=== PATIENT | male | born 1970 | race Caucasian/White ===

== ENCOUNTER 2024-05-03 12:09 | Inpatient (IN) | payer OTHER ==
[2024-05-03 13:04] VITALS: BMI 38.2
[2024-05-03] MEDS ORDERED: guaiFENesin 600 MG TABLET.ER (FP) PO PRN (13:24)
[2024-05-03] MEDS ORDERED: IBUPROFEN 400 MG TABLET (FP) PO PRN (13:24)
[2024-05-03] MEDS ORDERED: POLYETHYLENE GLYCOL (HEALTHYLAX) 3350 17 GM PACKET PO PRN (13:24)
[2024-05-03] MEDS ORDERED: LOPERAMIDE HCL 2 MG CAPSULE PO PRN (13:24)
[2024-05-03] MEDS ORDERED: BENZOCAINE/MENTHOL (CHLORASEPTIC ) LOZENGE MM PRN (13:24)
[2024-05-03] MEDS ORDERED: P-EPHED 60MG/TRIPROLIDI 2.5MG TABLET PO PRN (13:24)
[2024-05-03] MEDS ORDERED: MAG HYDROX/AL HYDROX/SIMETH 30 ML UNIT-DOSE CUP PO PRN (13:24)
[2024-05-03] MEDS ORDERED: NICOTINE POLACRILEX 2 MG LOZENGE BC PRN (13:24)
[2024-05-03] MEDS ORDERED: BISMUTH SUBSALICYLATE 524 MG/30 ML PO PRN (13:24)
[2024-05-03] MEDS ORDERED: MAGNESIUM HYDROX 2400MG/30ML ORAL SUSPENSION 30 ML CUP PO PRN (13:24)
[2024-05-03] MEDS ORDERED: NALOXONE (NARCAN) HCL 4 MG/0.1 ML SPRAY NS PRN (13:24)
[2024-05-03] MEDS ORDERED: NICOTINE POLACRILEX 2 MG GUM BUC PRN (13:24)
[2024-05-03] MEDS ORDERED: BENZONATATE 200 MG CAPSULE PO PRN (13:24)
[2024-05-03] MEDS ORDERED: DICYCLOMINE HCL 10 MG CAPSULE PO PRN (13:24)
[2024-05-03] MEDS ORDERED: ONDANSETRON *ODT* 4 MG TABLET SL PRN (13:24)
[2024-05-03] MEDS ORDERED: ACETAMINOPHEN 325 MG TABLET (FP) PO PRN (13:24)
[2024-05-03] MEDS: METHOCARBAMOL 500 MG TABLET PO PRN (17:21)
[2024-05-03] MEDS: cloNIDine HCL 0.1 MG TABLET PO PRN (17:21)
[2024-05-03] MEDS: IBUPROFEN 600 MG TABLET (FP) PO PRN (17:22)
[2024-05-03] MEDS: methaDONE HCL 10 MG TABLET (FOR DETOX USE ONLY) PO ONE (20:09)
[2024-05-03] MEDS: THIAMINE 100 MG TABLET PO SCH (22:16)
[2024-05-03] MEDS: MELATONIN 5 MG TABLETS PO SCH (22:16)
[2024-05-04 09:23] LABS: POTASSIUM 4.1 mmol/L (3.5-5.1)
[2024-05-04 09:30] LABS: CALCIUM 9.4 mg/dL (8.5-10.1)
[2024-05-04 09:32] LABS: ALBUMIN 3.6 g/dl (3.4-5.0); BLOOD UREA NITROGEN 13.4 mg/dL (7-18)
[2024-05-04] MEDS: PRENATAL VITAMINS W/ FOLIC ACID TABLET (FP) PO SCH (09:32)
[2024-05-04 09:33] LABS: HEMATOCRIT 39.6 % (35.4-49); HEMOGLOBIN 12.9 GM/dL (11.7-16.9); MCH 26.6 pg (25.7-33.7); MCHC 32.5 g/dl (32.0-35.9); MEAN CELL VOLUME 82.1 fl (80-96); MEAN PLT VOLUME 8.7 fl (7.5-11.1); PLATELET COUNT 233 10^3/uL (134-434); RBC 4.83 M/mm3 (4.00-5.60); RDW 15.8 % (11.9-15.9); WHITE BLOOD COUNT 8.6 K/mm3 (4.0-10.0)
[2024-05-04 09:34] LABS: CREATININE 0.6 mg/dL (0.55-1.3)
[2024-05-04 09:35] LABS: BILIRUBIN,TOTAL 0.5 mg/dL (0.2-1)
[2024-05-04 09:38] LABS: TOT PROT 6.9 g/dl (6.4-8.2)
[2024-05-04] MEDS: cloZAPine 25 MG TABLET PO ONE (11:04)
[2024-05-04 11:22] LABS: HIV INTERPRETATION NEGATIVE (NEGATIVE)
[2024-05-04] MEDS: FLU VACCINE (FLULAVAL) PF 45 MCG/0.5 ML SYRINGE 2024-2025 IM ONE (11:27)
[2024-05-04] MEDS ORDERED: diazePAM 5 MG TABLET PO PRN (12:40)
[2024-05-04] MEDS: cloZAPine 100 MG TABLET PO SCH (22:10)
[2024-05-05] MEDS: methaDONE HCL 10 MG TABLET (FOR DETOX USE ONLY) PO ONE (09:29)
[2024-05-05] MEDS ORDERED: diazePAM 5 MG TABLET PO PRN (10:40)
[2024-05-05] MEDS: LIDOCAINE 5% TOPICAL PATCH TP SCH (12:00)
[2024-05-05] MEDS: METHYL SALICYLATE/MENTHOL 30 GM TUBE TP SCH (22:22)
[2024-05-05] MEDS: LIDOCAINE PATCH REMOVAL MC SCH (22:54)
[2024-05-06 13:13] LABS: BASO % 0.4 % (0-2.0); EOS % 4.8 % (0-4.5); HEMATOCRIT 39.3 % (35.4-49); HEMOGLOBIN 12.8 GM/dL (11.7-16.9); LYMPH % 20.7 % (8-40); MCH 26.4 pg (25.7-33.7); MCHC 32.6 g/dl (32.0-35.9); MEAN CELL VOLUME 80.9 fl (80-96); MEAN PLT VOLUME 9.1 fl (7.5-11.1); MONO % 3.7 % (3.8-10.2); NEUT % 70.4 % (42.8-82.8); PLATELET COUNT 253 10^3/uL (134-434); RBC 4.85 M/mm3 (4.00-5.60); RDW 15.6 % (11.9-15.9); WHITE BLOOD COUNT 7.3 K/mm3 (4.0-10.0)
[2024-05-07] MEDS: methaDONE HCL 10 MG TABLET (FOR DETOX USE ONLY) PO ONE (09:25)
[2024-05-07] MEDS: PNEUMOC 20-VAL CONJ-DIP CRM/PF 0.5 ML SYRINGE IM ONE (11:52)
[2024-05-07 21:38] VITALS: TEMP 97.3
[2024-05-08 06:36] VITALS: BP 127/68; PULSE 71; RESP 17
== END 2024-05-08 09:23 | disposition home or self-care (01) | DRG 773 ==
LOC: YASAS 12:09 → Y6N 15:05
PROVIDERS: ADMIT Neuromusculoskeletal Medicine & OMM; ATTEND Allergy & Immunology
PROC: HZ2ZZZZ Detoxification Services for Substance Abuse Treatment (ICD-10-PCS; principal; 2024-05-03)
DX: F11.23 Opioid dependence with withdrawal (principal); F17.210 Nicotine dependence, cigarettes, uncomplicated; F19.280 Other psychoactive substance dependence with psychoactive substance-induced anxiety disorder; F19.282 Other psychoactive substance dependence with psychoactive substance-induced sleep disorder; F25.9 Schizoaffective disorder, unspecified; E03.9 Hypothyroidism, unspecified; E11.42 Type 2 diabetes mellitus with diabetic polyneuropathy; E78.5 Hyperlipidemia, unspecified; I10 Essential (primary) hypertension; Z62.810 Personal history of physical and sexual abuse in childhood; Z63.8 Other specified problems related to primary support group; Z88.8 Allergy status to other drugs, medicaments and biological substances
CPT/HCPCS: 0241U-QW; 36415; 80053; 80305; 80307; 82962; 85025; 85027; 86780; 86803; 87389; 93005; 93010